=== PATIENT | male | born 1975 | race Caucasian/White ===

== ENCOUNTER → 2025-09-28 08:46 | Outpatient (REF) | payer OTHER, SELFPAY | LOC: HWRAD 08:46 | PROVIDERS: ATTENDING PHYSICIAN Registered Nurse | DX: F17.210 Nicotine dependence, cigarettes, uncomplicated (principal); F17.290 Nicotine dependence, other tobacco product, uncomplicated; Z12.2 Encounter for screening for malignant neoplasm of respiratory organs | CPT/HCPCS: 71271 ==